=== PATIENT | female | born 1960 | race Two or more races ===

== ENCOUNTER 2019-03-23 08:09 | Emergency (ER) | payer OTHER ==
[2019-03-23 08:23] VITALS: BP 144/81; PULSE 83; TEMP 98.2; BMI 23.1
[2019-03-23] MEDS ORDERED: KETOROLAC TROMETHAMINE 60 MG/2 ML VIAL IM ONE (09:00)
[2019-03-23] MEDS ORDERED: KETOROLAC TROMETHAMINE 60 MG/2 ML VIAL ONE (09:04)
--- NOTE | 2019-03-23 09:06 | PDOC ---
History of Present Illness - General Chief Complaint: Back Pain Stated Complaint: BODY ACHE Time Seen by Provider: 03/23/19 09:00 History Source: Patient Exam Limitations: No Limitations - History of Present Illness Initial Comments: 03/23/19 09:02 Patient came for another opinion about chronic back pain. States has had many years of lower back/lumbar spine issues as well as cervical spine issues. Is currently taking baclofen and tramadol for pain relief and also taking Mirapex for restless leg syndrome but is not received much relief. Was seen by Dr. Lyon on Thursday who understands her pain is breaking through but has no other specialty referral. Has seen Dr. Montoya who diagnosed her restless leg syndrome and monitoring . Patient has never seen a spine surgeon and is not currently in pain management. Denies any changes in the pain character, is the chronic pain she experiences. Came to emergency department with hopes of another idea for relief of pain. Denies problems with bowel or bladder, denies fever. Occurred: reports: other (chronic ) Severity: reports: moderate Pain Location: reports: back, neck Method of Injury: Yes: unknown Modifying Factors: improves with: None Loss of Consciousness: no loss of consciousness Associated Symptoms (Fall): denies symptoms Past History - Travel Traveled outside of the country in the last 30 days: No Close contact w/someone who was outside of country & ill: No - Past Medical History Allergies/Adverse Reactions: Allergies Allergy/AdvReac Type Severity Reaction Status Date / Time No Known Allergies Allergy Verified 03/23/19 08:21 Home Medications: Ambulatory Orders Diclofenac Sodium 50 mg PO BID 03/23/19 Pramipexole Di-HCl [Mirapex] 0.25 mg PO BID 03/23/19 traMADol HCL [Ultram -] 50 mg PO BID 03/23/19 COPD: No Other medical history: RLS - Immunization History Immunization Up to Date: Yes - Psycho Social/Smoking Cessation Hx Smoking History: Never smoked Information on smoking cessation initiated: No Hx Alcohol Use: No Drug/Substance Use Hx: No Review of Systems - Review of Systems Able to Perform ROS?: Yes Is the patient limited [place] proficient: Yes Constitutional: Yes: Symptoms Reported, See HPI HEENTM: Yes: See HPI. No: Symptoms Reported Respiratory: Yes: See HPI. No: Symptoms reported Musculoskeletal: Yes: Symptoms Reported, See HPI, Back Pain, Joint Pain, Neck Pain Integumentary: Yes: Symptoms Reported, See HPI Neurological: Yes: Symptoms reported, See HPI, Tingling (To lower extremities per her baseline) *Physical Exam - Vital Signs Last Vital Signs Temp Pulse Resp BP Pulse Ox 98.2 F 83 18 144/81 97 03/23/19 08:19 18 08:19 03/23/19 08:19 03/23/19 08:19 03/23/19 08:19 - Physical Exam General Appearance: Yes: Nourished, Appropriately Dressed, Apparent Distress, Mild Distress, Moderate Distress HEENT: positive: NEMESIO, Normal ENT Inspection, TMs Normal, Pharynx Normal Neck: positive: Supple (Without C-spine tenderness, but has some tenderness along the paravertebral spinous muscles of neck muscles. States is also baseline, range of motion is intact) Respiratory/Chest: positive: Lungs Clear, Normal Breath Sounds Cardiovascular: positive: Regular Rhythm Gastrointestinal/Abdominal: positive: Soft. negative: Tender Musculoskeletal: positive: Normal Inspection, Decreased Range of Motion (With tenderness and tense musculature to the paravertebral spinous muscles bilaterally. Worse on the left than the right. States also is baseline.). negative: Vertebral Tenderness Extremity: positive: Normal Capillary Refill, Normal Inspection. negative: Normal Range of Motion Integumentary: positive: Dry, Warm, Pale Neurologic: positive: stopboard assembler II-XII NML intact, Fully Oriented, Alert, Normal Mood/ Affect, Normal Response, Motor Strength 5/5 ED Progress Note - Progress Note Progress Note: 03/23/19 16:56 Chronic back pain. Is currently taking tramadol and baclofen for antispasmodic and pain relief. Patient encouraged to follow-up with PMD/Dr. Lyon for further referral to possibly neurosurgery, physical therapy, physiotherapy or other palliative measures. Discharge - Discharge Information Problems reviewed: No Clinical Impression/Diagnosis: Chronic high back pain Condition: Stable Disposition: HOME - Admission No - Follow up/Referral Referrals: Mane Yanes MD [Primary Care Provider] - - Patient Discharge Instructions Patient Printed Discharge Instructions: DI for Back Spasm Additional Instructions: Rest, no heavy lifting or exercise until pain is resolved Hot soaks to neck and low back as often as possible/hot showers or Jacuzzis No massage or therapy until spasm is gone Continue baclofen and tramadol as directed by Dr. Lyon for pain management and spasm management of back. Make appointment for possible referral for orthopedic surgery/spine surgery for further evaluation and possible testing If not significant improvement within 24 hours with medication and rest regime, followup with private physician for change in medications and /or therapy. - Post Discharge Activity Work/Back to School Note: Back to Work
== END 2019-03-23 09:12 | disposition home or self-care (01) ==
LOC: JER 08:09 → JERFT 08:09
PROC: 3E0233Z Introduction of Anti-inflammatory into Muscle, Percutaneous Approach (ICD-10-PCS; principal; 2019-03-23)
DX: M54.89 Other dorsalgia (principal); G89.29 Other chronic pain; G25.81 Restless legs syndrome
CPT/HCPCS: 99281-25

== ENCOUNTER 2023-01-03 08:44 | Observation (INO) | payer OTHER ==
[2023-01-03 09:00] VITALS: RESP 18; BMI 21.1
[2023-01-03] MEDS ORDERED: ACETAMINOPHEN 1000 MG/100 ML BAG IVPB ONE (09:49)
[2023-01-03 10:06] LABS: BASO % 0.4 % (0-2.0); EOS % 2.9 % (0-4.5); HEMOGLOBIN 14.3 GM/dL (10.7-15.3); LYMPH % 28.8 % (8-40); MCHC 34.9 g/dl (32.0-36.0); MEAN PLT VOLUME 7.6 fl (7.5-11.1); MONO % 9.2 % (3.8-10.2); NEUT % 58.7 % (42.8-82.8); PLATELET COUNT 229 10^3/uL (134-434); RBC 4.77 M/mm3 (3.60-5.2); RDW 13.1 % (11.6-15.6); WHITE BLOOD COUNT 6.2 K/mm3 (4.0-10.0)
[2023-01-03] MEDS ORDERED: ACETAMINOPHEN INJECTION 100 ML IVPB ONE (10:23)
[2023-01-03 10:35] LABS: POTASSIUM 5.3 mmol/L (3.5-5.1)
[2023-01-03 10:37] LABS: CALCIUM 9.1 mg/dL (8.5-10.1)
[2023-01-03 10:38] LABS: ALBUMIN 3.6 g/dl (3.4-5.0); BLOOD UREA NITROGEN 13.4 mg/dL (7-18)
[2023-01-03 10:41] LABS: CREATININE 0.7 mg/dL (0.55-1.3)
[2023-01-03 10:43] LABS: BILIRUBIN,TOTAL 0.5 mg/dL (0.2-1); TOT PROT 7.4 g/dl (6.4-8.2)
[2023-01-03 12:27] LABS: N-TERMINAL BNP 36.9 pg/ml (5-125)
[2023-01-03] MEDS ORDERED: ALBUTEROL SO4 2.5/IPRATROPIUM 0.5 INH SOL 3 ML VIAL.NEB. NEB ONE ×2 (12:42→12:43)
[2023-01-03 14:00] VITALS: BP 122/68; PULSE 68; TEMP 97.7
== END 2023-01-03 14:00 | disposition home or self-care (01) ==
LOC: JER 08:44 → JERBED 13:32 → JER 14:00
PROVIDERS: ADMIT Internal Medicine; ATTEND Internal Medicine
PROC: 3E033NZ Introduction of Analgesics, Hypnotics, Sedatives into Peripheral Vein, Percutaneous Approach (ICD-10-PCS; principal; 2023-01-03)
PROC: 3E0F7GC Introduction of Other Therapeutic Substance into Respiratory Tract, Via Natural or Artificial Opening (ICD-10-PCS; 2023-01-03)
DX: J40 Bronchitis, not specified as acute or chronic (principal); M54.50 Low back pain, unspecified; E78.5 Hyperlipidemia, unspecified; M94.0 Chondrocostal junction syndrome [Tietze]; R00.2 Palpitations; R06.02 Shortness of breath; R09.3 Abnormal sputum; F17.200 Nicotine dependence, unspecified, uncomplicated
CPT/HCPCS: 0241U-QW; 36415; 71045-TC-FY; 80053; 83880; 84484; 85025; 85379; 93005; 93010; 99285-25; G0378